=== PATIENT | male | born 1995 | race Caucasian/White ===

== ENCOUNTER 2017-03-03 16:38 | Emergency (ER) | payer OTHER ==
[~2017-03-03] VITALS: Ht 180.3 cm; Wt 93.2 kg
[2017-03-03 16:43] VITALS: BP 151/82
[2017-03-03] MEDS ORDERED: BACTRIM 160MG/800MG DS TAB PO ONE (17:45)
[2017-03-03] MEDS ORDERED: predniSONE 20 MG TAB PO ONE (17:45)
[2017-03-03] MEDS ORDERED: BACT800T5 PO (17:49)
[2017-03-03] MEDS ORDERED: PRED20TA PO (17:49)
[2017-03-03] MEDS ORDERED: CLOB-25 EX (17:49)
== END 2017-03-03 17:56 | disposition home or self-care (01) ==
LOC: M ED 16:38
DX: L03.113 Cellulitis of right upper limb (principal); L03.116 Cellulitis of left lower limb; L23.7 Allergic contact dermatitis due to plants, except food

== ENCOUNTER 2018-02-22 02:23 | Emergency (ER) | payer OTHER | END 2018-02-22 04:29 | disposition home or self-care (01) | LOC: M ED 02:23 | DX: S00.93XA Contusion of unspecified part of head, initial encounter (principal); Y04.2XXA Assault by strike against or bumped into by another person, initial encounter; Y92.89 Other specified places as the place of occurrence of the external cause; Y93.89 Activity, other specified; Y99.9 Unspecified external cause status | CPT/HCPCS: 70450 ==

== ENCOUNTER 2018-02-22 07:36 | Emergency (ER) | payer OTHER ==
[2018-02-22] MEDS: ONDANSETRON 4 MG ORAL DISINTEGRATING TAB (Q0162 PER 1MG) PO (08:58)
== END 2018-02-22 09:22 | disposition home or self-care (01) ==
LOC: M ED 07:36
DX: S00.93XA Contusion of unspecified part of head, initial encounter (principal); Y04.2XXA Assault by strike against or bumped into by another person, initial encounter; Y92.89 Other specified places as the place of occurrence of the external cause; Y93.89 Activity, other specified; Y99.9 Unspecified external cause status
CPT/HCPCS: Q0162

== ENCOUNTER 2018-06-09 22:57 | Emergency (ER) | payer OTHER ==
[~2018-06-09] VITALS: Ht 180.3 cm; Wt 90.9 kg
[~2018-06-09 22:57] MED LIST: ACET-716 PO; BACT800T5 PO; CLOB-25 EX; PRED20TA PO; ZOFR4TAB14 PO
[2018-06-09 22:58] VITALS: BP 165/78
[2018-06-10 00:45] LABS: INFLUENZA A AMPLIFICATION NEGATIVE (NEGATIVE); INFLUENZA B AMPLIFICATION NEGATIVE (NEGATIVE)
[2018-06-10] MEDS ORDERED: TESS100C PO (01:09)
[2018-06-10] MEDS ORDERED: AMOX500C PO (01:09)
[2018-06-10] MEDS ORDERED: BENZONATATE 100 MG CAP PO ONE (01:15)
[2018-06-10] MEDS ORDERED: AMOXICILLIN 500 MG CAP PO ONE (01:15)
== END 2018-06-10 01:15 | disposition home or self-care (01) ==
LOC: M ED 22:57
DX: J02.0 Streptococcal pharyngitis (principal); Z72.0 Tobacco use

== ENCOUNTER 2021-01-27 06:45 | Emergency (ER) | payer OTHER ==
[~2021-01-27] VITALS: Ht 182.9 cm; Wt 111.9 kg
[~2021-01-27 06:45] MED LIST changes: +AMOX500C PO; +TESS100C PO
--- OUTSIDE RECORDS SUMMARY | 2021-01-27 06:50 | CCD ---
Author Author [facility] Organization [facility] Address Unknown Phone Unavailable Care Team Providers Care Geological E Logger Name Role Phone Renetta Cordoba MD Unavailable Unavailable Renetta Cordoba MD Unavailable Unavailable Renetta Cordoba MD Unavailable Unavailable Renetta Cordoba MD Unavailable Unavailable Renetta Cordoba MD Unavailable Unavailable Renetta Cordoba MD Unavailable Unavailable Renetta Cordoba MD Unavailable Unavailable Renetta Cordoba MD Unavailable Unavailable Renetta Cordoba MD Unavailable Unavailable Renetta Cordoba MD Unavailable Unavailable Renetta Cordoba MD Unavailable Unavailable Renetta Cordoba MD Unavailable Unavailable Renetta Cordoba MD Unavailable Unavailable Renetta Cordoba MD Unavailable Unavailable Renetta Cordoba MD Unavailable Unavailable Renetta Cordoba MD Unavailable Unavailable Renetta Cordoba MD Unavailable Unavailable Renetta Cordoba MD Unavailable Unavailable Renetta Cordoba MD Unavailable Unavailable Renetta Cordoba MD Unavailable Unavailable Renetta Cordoba MD Unavailable Unavailable Renetta Cordoba MD Unavailable Unavailable Renetta Cordoba MD Unavailable Unavailable Renetta Cordoba MD Unavailable Unavailable Renetta Cordoba MD Unavailable Unavailable Renetta Cordoba MD Unavailable Unavailable Renetta Cordoba MD Unavailable Unavailable Renetta Cordoba MD Unavailable Unavailable Renetta Cordoba MD Unavailable Unavailable Renetta Cordoba MD Unavailable Unavailable Renetta Cordoba MD Unavailable Unavailable Renetta Cordoba MD Unavailable Unavailable Renetta Cordoba MD Unavailable Unavailable Renetta Cordoba MD Unavailable Unavailable Renetta Cordoba MD Unavailable Unavailable Renetta Cordoba MD Unavailable Unavailable Renetta Cordoba MD Unavailable Unavailable Renetta Cordoba MD Unavailable Unavailable Renetta Cordoba MD Unavailable Unavailable Cordoba E Aida GONZALEZ Unavailable Unavailable Cordoba, E Aida GONZALEZ Unavailable Unavailable Cordoba, E Aida GONZALEZ Unavailable Unavailable Cordoba, E Aida MD Unavailable Unavailable Cordoba, E Aida MD Unavailable Unavailable Cordoba E Aida GONZALEZ Unavailable Unavailable Re-disclosure Warning The records that you are about to access may contain information from federally-assisted alcohol or drug abuse programs. If such information is present, then the following federally mandated warning applies: This information has been disclosed to you from records protected by federal confidentiality rules (42 CFR part 2). The federal rules prohibit you from making any further disclosure of this information unless further disclosure is expressly permitted by the written consent of the person to whom it pertains or as otherwise permitted by 42 CFR part 2. A general authorization for the release of medical or other information is NOT sufficient for this purpose. The Federal rules restrict any use of the information to criminally investigate or prosecute any alcohol or drug abuse patient.The records that you are about to access may contain highly sensitive health information, the redisclosure of which is protected by Article 27-F of the [facility] Public Health law. If you continue you may have access to information: Regarding HIV / AIDS; Provided by facilities licensed or operated by the [facility] Office of Mental Health; or Provided by the [facility] Office for People With Developmental Disabilities. If such information is present, then the following [facility] mandated warning applies: This information has been disclosed to you from confidential records which are protected by state law. State law prohibits you from making any further disclosure of this information without the specific written consent of the person to whom it pertains, or as otherwise permitted by law. Any unauthorized further disclosure in violation of state law may result in a fine or shelter sentence or both. A general authorization for the release of medical or other information is NOT sufficient authorization for further disc losure. Encounters Encounter Providers Location Date Indications Data Source(s ) Outpatient Attender: Aida Cordoba MD 01/17/2020 02:30:00 PM [facility] Immunizations Vaccine Date Status Description Data Source(s) COVID-19 VACCINE Pfizer 06/27/2020 12:00:00 AM EDT completed [facility] Vaccine Series Complete: NOThis Data was Submitted to [facility] Via [employer]. Medications No Information Insurance Providers Payer name Policy type / Coverage type Policy ID Covered constitution party ID Covered constitution party's relationship to swain Policy Swain Plan Information [facility] [employer] [id number] SP [id number] [facility] [employer] [id number] SP [id number] [facility] [employer] [id number] SP [id number] Problems, Conditions, and Diagnoses No Information Surgeries/Procedures No Information Results ID Date Data Source [id number] 11/17/2020 12:00:00 AM EDT [facility] Name Value Range Interpretation Code Description Data Jocelyne rce(s) Supporting Document(s) SARS-CoV2 Rapid Antigen Negative [facility] This lab was ordered by [facility] and reported by [facility]. ID Date Data Source [id number] 01/17/2020 04:09:00 PM EST [facility] Normal result is "BinaxNow Covid-19 Ag n egative"BinaxNow Covid-19 Ag is a rapid lateral flowimmunochromatographic immunoassayThis test detects both viable(live) and non-viable, SARS-COVand SARS-COV-2.Positive test results do not differentiate between SARS-COVand [id number] results , from patients with symptom onset beyondseven days, should be treated as presumptive andconfirmation with a molecular assay, if necessary, forpatient managementIf the differentiation of specific SARS viruses and strainsis needed, additional testing, in consultation with stateand local public health departments, is required.[employer] Covid -19 Ag Negative Name Value Range Interpretation Code Description Data Jocelyne rce(s) Supporting Document(s) ID Date Data Source [id number] 01/17/2020 12:00:00 AM EDT [facility] Name Value Range Interpretation Code Description Data Jocelyne rce(s) Supporting Document(s) SARS-CoV2 Rapid Antigen [facility] This lab was ordered by [facility] roseliaal - OP and reported by [facility]. ID Date Data Source [id number] 01/16/2020 12:00:00 AM EDT [facility] Name Value Range Interpretation Code Description Data Jocelyne rce(s) Supporting Document(s) SARS-CoV2 Rapid Antigen [facility] This lab was ordered by [facility] and reported by [facility]. Procedure Social History No Information
--- OUTSIDE RECORDS SUMMARY | 2021-01-27 08:13 | CCD ---
Author Author [facility] Organization [facility] Address Unknown Phone Unavailable Care Team Providers Care Tapper Hand Name Role Phone Renetta Cordoba MD Unavailable Unavailable Renetta Cordoba MD Unavailable Unavailable Renetta Cordoba MD Unavailable Unavailable Renetta Cordoba MD Unavailable Unavailable Renetta Crodoba MD Unavailable Unavailable Renetta Cordoba MD Unavailable [...] is protected by Article 27-F of the [facility] Public Health law. If you continue you may have access to information: Regarding HIV / AIDS; Provided by facilities licensed or operated by the [facility] Office of Mental Health; or Provided by the [facility] Office for People With Developmental Disabilities. If such information is present, then the following [facility] mandated warning applies: This information has been [...] law may result in a fine or snf sentence or both. A general authorization for the release of medical or other information is NOT sufficient authorization for further disc losure. Encounters Encounter Providers Location Date Indications Data Source(s ) Outpatient Attender: Aida Cordoba MD 01/17/2020 02:30:00 PM [facility] Immunizations Vaccine Date Status Description Data Source(s) COVID-19 VACCINE Pfizer 06/27/2020 12:00:00 AM EDT completed [facility] Vaccine Series Complete: NOThis Data was Submitted to [facility] Via [employer]. Medications No Information Insurance Providers Payer name Policy type / Coverage type Policy ID Covered constitution party ID Covered constitution party's relationship to swain Policy Swain Plan Information [facility] [employer] [id number] SP [id number] [facility] [employer] [id number] SP [id number] [facility] [employer] D[employer]Y [id number] SP [id number] Problems, Conditions, and Diagnoses No Information Surgeries/Procedures No Information Results ID Date Data Source [id number] 11/17/2020 12:00:00 AM EDT [facility] Name Value Range Interpretation Code Description Data Jocelyne rce(s) Supporting Document(s) SARS-CoV2 Rapid Antigen Negative [facility] This lab was ordered by [facility] and reported by [facility]. ID Date Data Source [id number] 01/17/2020 04:09:00 PM EST [facility] Normal result is "BinaxNow Covid-19 Ag n egative"BinaxNow Covid-19 Ag is a rapid lateral flowimmunochromatographic immunoassayThis test detects both viable(live) and non-viable, SARS-COVand SARS-COV-2.Positive test results do not differentiate between SARS-COVand [id number] results , from patients with symptom onset beyondseven days, should be treated as presumptive andconfirmation with a molecular assay, if necessary, forpatient managementIf the differentiation of specific SARS viruses and strainsis needed, additional testing, in consultation with stateand local public health departments, is required.[employer]Now Covid -19 Ag Negative Name Value Range Interpretation Code Description Data Jocelyne rce(s) Supporting Document(s) ID Date Data Source [id number] 01/17/2020 12:00:00 AM EDT [facility] Name Value Range Interpretation Code Description Data Jocelyne rce(s) Supporting Document(s) SARS-CoV2 Rapid Antigen [facility] This lab was ordered by [facility] roseliaal - OP and reported by [facility]. ID Date Data Source [id number] 01/16/2020 12:00:00 AM EDT [facility] Name Value Range Interpretation Code Description Data Jocelyne rce(s) Supporting Document(s) SARS-CoV2 Rapid Antigen [facility] This lab was ordered by [facility] and reported by [facility]. Procedure Social History No Information
[2021-01-27] MEDS ORDERED: KETOROLAC 30 MG/ML 1ML VIAL IV ONE (09:05)
[2021-01-27 09:41] LABS: BASO % 0.5 % (0.0-1.0); EOS # 0.1 10^3/uL (0.0-0.5); HEMATOCRIT 46.5 % (42.0-52.0); HEMOGLOBIN 15.8 g/dl (13.5-17.5); LYMPH # 2.1 10^3/uL (1.5-5.0); LYMPH % 34.8 % (24.0-44.0); MEAN CORPUSCULAR HEMOGLOBIN 30.7 pg (27.0-33.0); MEAN CORPUSCULAR VOLUME 90.3 fl (80.0-96.0); MONO # 0.7 10^3/uL (0.0-0.8); MONO % 11.6 % (2.0-8.0); NEUTROPHILS # 3.1 10^3/uL (1.5-8.5); NEUTROPHILS % 51.4 % (36.0-66.0); PLATELET COUNT, AUTOMATED 234 10^3/uL (150-450); RED BLOOD COUNT 5.15 10^6/uL (4.30-6.10)
--- NOTE | 2021-01-27 09:42 | REP ---
INDICATION: great toe pain PIP radiating into MT, r/o stress fx v gout. COMPARISON: None. TECHNIQUE: Four views FINDINGS: There is a tiny lucency in the medial aspect of the distal metaphysis of the proximal phalanx of the great toe. Has a sclerotic margin. On oblique view it appears to have communication to the soft tissues. There is no abnormal soft tissue calcification the other IP joints and MTP joints are unremarkable. I do not see any swelling about the MTP or IP joints. Metatarsals, tarsal bones and hindfoot unremarkable some minor dorsal lateral swelling over the tarsals on oblique view. No heel spurs. Subtalar joints intact. IMPRESSION: 1. Lucency along the medial aspect of the distal metaphysis of the proximal phalanx of the great toe. No abnormal soft tissue calcification or significant swelling. Finding could reflect a small bone cyst although a gouty erosion could also give this appearance. 2. Minor dorsal lateral swelling over the tarsal bones on 1 of the oblique views. No other significant or acute finding. <Electronically signed by Matthew Bean > 01/27/21 [id number]
[2021-01-27 10:00] LABS: BLOOD UREA NITROGEN 13 MG/DL (7-18); CALCIUM LEVEL 9.4 MG/DL (8.5-10.1); CARBON DIOXIDE LEVEL 30 MEQ/L (21-32); CHLORIDE LEVEL 105 MEQ/L (98-107); GLOMERULAR FILTRATION RATE > 60.0 (>60); GLUCOSE, FASTING 106 MG/DL (70-100); POTASSIUM SERUM 4.6 MEQ/L (3.5-5.1); SODIUM LEVEL 139 MEQ/L (136-145); URIC ACID 7.7 MG/DL (3.5-7.2)
[2021-01-27 10:04] LABS: ERYTHROCYTE SEDIMENTATION RATE 2 mm/hr (0-15)
[2021-01-27 10:59] VITALS: BP 140/87
[2021-01-27] MEDS ORDERED: NAPR-837 PO (11:05)
[2021-01-27] MEDS ORDERED: COLC1CAP PO (11:05)
[2021-01-27] MEDS ORDERED: COLCHICINE 0.6 MG TABLET PO ONE (11:05)
--- NOTE | 2021-01-31 20:04 | ED PDOC ---
Post-Departure Follow-Up radiology report faxed to [facility] Brittany Warner MD Jan 31, 2021 20:04
== END 2021-01-27 11:44 | disposition home or self-care (01) ==
LOC: M ED 06:45
DX: M10.9 Gout, unspecified (principal); M79.674 Pain in right toe(s)
CPT/HCPCS: 73630; 80048; 84550; 85025; 85652; 86140; 96374; 99284; J1885

== ENCOUNTER 2021-04-29 04:00 | Emergency (ER) | payer OTHER ==
[~2021-04-29] VITALS: Ht 180.3 cm; Wt 104.5 kg
[~2021-04-29 04:00] MED LIST changes: +COLC1CAP PO; +NAPR-837 PO
[2021-04-29 07:33] LABS: BASO % 0.4 % (0.0-1.0); EOS # 0.1 10^3/uL (0.0-0.5); EOS % 0.8 % (0.0-3.0); HEMATOCRIT 43.4 % (42.0-52.0); HEMOGLOBIN 14.7 g/dl (13.5-17.5); LYMPH # 1.5 10^3/uL (1.5-5.0); LYMPH % 18.4 % (24.0-44.0); MEAN CORPUSCULAR HEMOGLOBIN 30.3 pg (27.0-33.0); MEAN CORPUSCULAR HGB CONC 33.9 g/dl (32.0-36.5); MEAN CORPUSCULAR VOLUME 89.5 fl (80.0-96.0); MONO % 12.3 % (2.0-8.0); NEUTROPHILS # 5.6 10^3/uL (1.5-8.5); NEUTROPHILS % 67.7 % (36.0-66.0); PLATELET COUNT, AUTOMATED 221 10^3/uL (150-450); RED BLOOD COUNT 4.85 10^6/uL (4.30-6.10); WHITE BLOOD COUNT 8.3 10^3/uL (4.0-10.0)
[2021-04-29 07:58] LABS: BLOOD UREA NITROGEN 11 MG/DL (7-18); C REACTIVE PROTEIN QUANTITATIV 0.67 MG/DL (0.00-0.30); CALCIUM LEVEL 9.1 MG/DL (8.5-10.1); CARBON DIOXIDE LEVEL 29 MEQ/L (21-32); CHLORIDE LEVEL 106 MEQ/L (98-107); CREATININE FOR GFR 1.04 MG/DL (0.70-1.30); GLOMERULAR FILTRATION RATE > 60.0 (>60); GLUCOSE, FASTING 100 MG/DL (70-100); POTASSIUM SERUM 4.9 MEQ/L (3.5-5.1); SODIUM LEVEL 138 MEQ/L (136-145); URIC ACID 6.1 MG/DL (3.5-7.2)
[2021-04-29] MEDS ORDERED: INDO50CA91 PO ×3 (08:04→09:19)
[2021-04-29] MEDS ORDERED: INDOMETHACIN 25 MG CAP PO ONE (08:10)
[2021-04-29 08:22] LABS: ERYTHROCYTE SEDIMENTATION RATE 4 mm/hr (0-15)
[2021-04-29 09:23] VITALS: BP 143/93
== END 2021-04-29 09:24 | disposition home or self-care (01) ==
LOC: M ED 04:00
DX: M10.071 Idiopathic gout, right ankle and foot (principal); I10 Essential (primary) hypertension

== ENCOUNTER 2023-12-19 16:09 | Emergency (ER) | payer OTHER ==
[~2023-12-19] VITALS: Ht 182.9 cm; Wt 115.2 kg
[~2023-12-19 16:09] MED LIST changes: +IBUP80TA PO; +INDO50CA91 PO
[2023-12-19 17:38] VITALS: BP 141/84; TEMP 98.4; O2SAT 100
== END 2023-12-19 17:40 | disposition home or self-care (01) ==
LOC: M ED 16:09
DX: N50.812 Left testicular pain (principal)

== ENCOUNTER 2025-02-06 23:47 | Emergency (ER) | payer OTHER ==
[~2025-02-06] VITALS: Ht 180.3 cm; Wt 110.5 kg
[2025-02-06] MEDS ORDERED: ACET-683 PO (23:52)
[2025-02-07 01:11] LABS: BASO # 0.0 10^3/uL (0.0-0.2); BASO % 0.4 % (0.0-1.0); EOS # 0.1 10^3/uL (0.0-0.5); EOS % 0.7 % (0.0-3.0); LYMPH # 2.5 10^3/uL (1.5-5.0); LYMPH % 36.4 % (24.0-44.0); MONO # 0.8 10^3/uL (0.0-0.8); MONO % 12.0 % (2.0-8.0); NEUTROPHILS # 3.5 10^3/uL (1.5-8.5); NEUTROPHILS % 50.2 % (36.0-66.0); PLATELET COUNT, AUTOMATED 217 10^3/uL (150-450)
[2025-02-07 01:32] LABS: INR 0.96
[2025-02-07 01:37] LABS: CK-MB VALUE MASS 1.6 NG/ML (<3.6)
[2025-02-07 01:39] LABS: ALT/SGPT 67 U/L (7.0-40); AST/SGOT 92 U/L (<34); CALCIUM LEVEL 9.2 MG/DL (8.5-10.1); CARBON DIOXIDE LEVEL 27 MMOL/L (20-31); CHLORIDE LEVEL 103 MMOL/L (98-107); CREATININE FOR GFR 0.93 MG/DL (0.70-1.30); GLOMERULAR FILTRATION RATE > 90.0 (>60); POTASSIUM SERUM 4.2 MMOL/L (3.5-5.1); SODIUM LEVEL 140 MMOL/L (136-145)
[2025-02-07 02:11] LABS: CPK CREATINE PHOSPHOKINASE 1700 U/L (46-171); MB/CK RELATIVE INDEX 0.09 (< OR =4)
[2025-02-07] MEDS: KETOROLAC 30 MG/ML 1 ML VIAL IV ONE (04:37)
[2025-02-07 07:09] VITALS: BP 122/84; TEMP 98; O2SAT 97
== END 2025-02-07 07:18 | disposition home or self-care (01) ==
LOC: M ED 23:47
DX: R07.9 Chest pain, unspecified (principal); M25.512 Pain in left shoulder
CPT/HCPCS: 71045; 73030; 80048; 80076; 82550; 82553; 83690; 84484; 85025; 85610; 93005; 93041; 94760; 96374; 99284; J1885